=== PATIENT | female | born 1960 | race Caucasian/White ===

== ENCOUNTER → 2018-09-07 | Outpatient (CLI) | payer BC ==
--- NOTE | 2018-09-07 16:23 | PCVCIMAG ---
APPROVED REPORT Study performed: 09/07/2018 14:26:48 Exam: Stress Echocardiogram Indication: chest heaviness,fatigue Patient Location: Echo lab Stress Nurse: Nely Zuluaga RN Room #: 2 Status: routine Ht: 5 ft 2 in HR: 65 bpm BP: 142/88 mmHg Rhythm: NSR Medical History Medical History: Hyperlipidemia Cardiac Risk Factors: Hyperlipidemia Previous Cardiac Procedures: none Pretest Chest Pain Characteristics: No chest pain Exercise History: Physically active Procedure The patient underwent an Exercise Stress Test using the Rl Protocol. Blood pressure, heart rate, and EKG were monitored. An Echocardiogram was performed by quality control technician in four stages in quad fashion. At peak stress, four selected images were obtained and placed side by side with resting images for comparison. Stress Test Details Stress Test: Exercise stress testing was performed using a Rl protocol. HR Resting HR: 60 bpmMax Heart Rate (APMHR): 163 bpm Max HR Achieved: 164 bpmTarget HR (85% APMHR): 138 bpm % of APMHR: 100 Recovery HR: 79 bpm HR response to stress: Normal HR response to stress BP Resting BP: 142/88 mmHg Max BP: 184/80 mmHg Recovery BP: 164/84 mmHg BP response to stress: Normal blood pressure response to stress. ECG Resting ECG: Sinus Rhythm Stress ECG: Sinus Rhythm, NSSTT changes ST Change: Upsloping ST depression, Non-ischemic Maximum ST Deviation: -1.7 mm Recovery ECG: Sinus Rhythm, NSSTT changes Recovery ST Change: Non-ischemic Recovery ST Deviation: -0.80 mm Recovery Arrhythmia: None Clinical Reason for Termination: Maximal effort Stress Symptoms: fatigue Exercise duration: 9 min 47 sec Exercise capacity: 12.7 METs Overall Exercise Capacity for Age: Good Scale: Active Angina Score: None No complications. Stress ECG Conclusion The patient exercised according to the RL protocol for 9:47 mins; achieving a work level of 12.7 METS. The resting heart rate of 60 bpm nadeem to a maximum heart rate of 166 bpm. This value represent 101% of the maximal, age-predicted heart rate. The resting blood pressure of 142/88 mmHg, nadeem to a maximum blood pressure of 194/76 mmHg. The exercise test was stopped due to fatigue. Sharif Treadmill Score is 17.5 which is Low risk. Pre-Stress Echo The resting Echocardiogram showed normal left ventricular contractility with an estimated Ejection Fraction of about 55-60%. Normal wall motion in all segments on baseline images. Post-Stress Echo The stress Echocardiogram showed normal left ventricular contractility with an estimated Ejection Fraction of about 65-70%. Normal augmentation of wall motion in all segments on post stress images. Clinical No clinical or ECG evidence for ischemia. Conclusion Clinical Response: Non-ischemic Exercise Capacity: Superior Stress ECG Response: Non-ischemic Stress Echo Images: Non-ischemic No clinical, EKG or echocardiographic evidence for ischemia. No echocardiographic evidence for exercise induced ischemia. Normal stress echocardiogram with maximal exercise stress. No prior study available for comparison. <Conclusion> No clinical, EKG or echocardiographic evidence for ischemia. No echocardiographic evidence for exercise induced ischemia. Normal stress echocardiogram with maximal exercise stress.
== END | disposition home or self-care (01) ==
LOC: PCVCIMAG 14:00
PROVIDERS: ATTEND Internal Medicine Cardiovascular Disease
DX: I34.0 Nonrheumatic mitral (valve) insufficiency (principal); I42.9 Cardiomyopathy, unspecified; E78.5 Hyperlipidemia, unspecified; R07.89 Other chest pain; R53.83 Other fatigue; Z88.2 Allergy status to sulfonamides
CPT/HCPCS: 93325; 93351